=== PATIENT | female | born 1960 | race Two or more races ===

== ENCOUNTER 2017-05-18 13:06 | Outpatient (CLI) | payer MEDICARE, MEDICAID ==
[~2017-05-18 13:06] MED LIST: AMITRIPTYLINE25 MG ORAL; NORCO 10-325 T1 EACH ORAL; PROZAC10 MG ORAL
[2017-05-18 13:20] VITALS: BP 130/82
--- NOTE | 2017-05-18 14:05 | GI Initial Consult Note ---
History of Present Illness General Date patient seen: May 18, 2017 Time patient seen: 14:02 Referring physician: Analia Reason for Consultation: ABDOMINAL BLOATING Present Illness HPI 56 year old patient presents today c/o of constipation no BM x 3 days and abdominal bloating after meals. S/P EGD/colonoscopy (03/24/16) - 3 cm Barretts esophagus, diverticulosis, multiple polyps. Denies any unintentional weight loss or changes in dietary habits. No signs of abuse or neglect. Patient is not fall risk. Home Meds Reported Medications Hydrocodone Bit/Acetaminophen 10-325* (NORCO 10-325*) 1 Each Tablet, 1 TAB ORAL Q4H Y for For Pain, TAB 0 Refills PRN PAIN 04/27/16 Amitriptyline HCl (ELAVIL*) 25 Mg Tablet, 25 MG ORAL BEDTIME, TAB 04/27/16 Fluoxetine Hcl* (PROZAC*) 10 Mg Capsule, ORAL DAILY, CAP 04/27/16 Med list reviewed/reconciled: Yes Allergies: Coded Allergies: No Known Allergies (Unverified , 04/27/16) History Provided By: Patient PMH Narrative pancreatitis disk hernia asthma pneumonia depression PSHx - N/A Social History: Reports: other - coffee, smoking - 7-10 cigarrettes a day Home Meds Reported Medications Hydrocodone Bit/Acetaminophen 10-325* (NORCO 10-325*) 1 Each Tablet, 1 TAB ORAL Q4H Y for For Pain, TAB 0 Refills PRN PAIN 04/27/16 Amitriptyline HCl (ELAVIL*) 25 Mg Tablet, 25 MG ORAL BEDTIME, TAB 04/27/16 Fluoxetine Hcl* (PROZAC*) 10 Mg Capsule, ORAL DAILY, CAP 04/27/16 Allergies: Coded Allergies: No Known Allergies (Unverified , 04/27/16) Review of Systems All Other Systems: negative except mentioned in HPI Physical Exam T 98.3 BP 130/82 P 106 100 RA Sp02 EP Interpretation: reviewed, normal General Appearance: well appearing, no apparent distress, alert Head: normocephalic EENT: PERRL/EOMI, normal ENT inspection Neck: supple Respiratory: normal breath sounds, no respiratory distress Cardiovascular: normal rate Gastrointestinal: normal inspection, non tender, soft, normal bowel sounds, non -distended Rectal: deferred Genitourinary: no CVA tenderness Musculoskeletal: normal inspection, back normal Neurologic: normal inspection, alert, oriented x3, responsive Psychiatric: normal inspection, judgement/insight normal, memory normal Skin: normal inspection, normal color, no rash, warm/dry, palpation normal, well hydrated Lymphatic: normal inspection, no adenopathy GI: Plan Problems: (1) Small intestinal bacterial overgrowth (2) Adorno esophagus (3) Depression (4) Diverticulosis (5) Colon polyps Plan EGD scheduled at 05/26/17. - NPO @ [place] day prior procedure explained and acknowledged by patient. Rx Xifaxan will consider OIC medication if constipation has not improved. Seen with Dr. Kramer. Thank you for this patient referral. Marie Uriarte N.P. May 18, 2017 14:05
== END 2017-05-18 13:40 | disposition home or self-care (01) ==
LOC: PAN 13:06
DX: K57.90 Diverticulosis of intestine, part unspecified, without perforation or abscess without bleeding (principal); K63.5 Polyp of colon; F32.9 Major depressive disorder, single episode, unspecified; K22.70 Barrett's esophagus without dysplasia; A04.8 Other specified bacterial intestinal infections; F17.210 Nicotine dependence, cigarettes, uncomplicated
CPT/HCPCS: 99212

== ENCOUNTER 2017-05-26 08:57 | Day surgery (SDC) | payer MEDICARE, MEDICAID ==
[2017-05-26] VITALS (7 sets, daily range): BP systolic 121–143; BP diastolic 69–88
[~2017-05-26] VITALS: Ht 152.4 cm; Wt 79.4 kg
--- NOTE | 2017-05-26 10:11 | Pre-Procedure Note/Attestation ---
Pre-Procedure Note/Attestation Complete Prior to Procedure Planned Procedure: not applicable Procedure Narrative: egd Indications for Procedure Pre-Operative Diagnosis: barretts esophagus Attestation I attest that I discussed the nature of the procedure; its benefits; risks and complications; and alternatives (and the risks and benefits of such alternatives ), prior to the procedure, with the patient (or the patient's legal electronics parts sales representative). I attest that, if there was a reasonable possibility of needing a blood transfusion, the patient (or the patient's legal electronics parts sales representative) was given the [facility] standardized written summary, pursuant to the Robert Kathrin Blood Safety Act ([place] Health and Safety Code # 1645, as amended). I attest that I re-evaluated the patient just prior to the surgery and that there has been no change in the patient's H&P, except as documented below: JUDE FELDMAN May 26, 2017 10:11
--- NOTE | 2017-05-26 10:11 | Short Stay Surgery H&P ---
History of Present Illness History of Present Illness Chief Complaint see recent clinic note HPI Jena Cutler is a 57 year old female who was admitted on for Barretts Esophagus Patient History Allergies: Coded Allergies: No Known Allergies (Unverified , 04/27/16) PAST MEDICAL HISTORY: Past Surgeries: Social History: Medication History Scheduled Amitriptyline HCl (Elavil*), 25 MG ORAL BEDTIME, (Reported) Fluoxetine Hcl* (Prozac*), Unknown Dose ORAL DAILY, (Reported) Scheduled PRN Hydrocodone Bit/Acetaminophen 10-325* ([place] 10-325*), 1 TAB ORAL Q4H PRN for For Pain, (Reported) Physical Exam Vital Signs Last Vital Signs Date Time Temp Pulse Resp B/P (MAP) Pulse Ox O2 Delivery O2 Flow Rate FiO2 05/26/17 09:40 98.2 92 18 123/69 95 Room Air Plan Attestation Are the patient's medical conditions optimized for surgery? JUDE FELDMAN May 26, 2017 10:11
[2017-05-26] MEDS ORDERED: Lidocaine 1% MPF 10mg/ml 5ml ONE (10:30)
[2017-05-26] MEDS ORDERED: Propofol 200mg/20ml IV ONE (10:30)
--- NOTE | 2017-05-26 11:00 | Anethesia Preoperative Eval ---
Anesthesia Pre-op PMH/ROS General Date of Evaluation: May 26, 2017 Time of Evaluation: 10:30 Anesthesiologist: tyree ASA Score: ASA 3 Mallampati Score Class I : Soft palate, uvula, fauces, pillars visible Class II: Soft palate, uvula, fauces visible Class III: Soft palate, base of uvula visible Class IV: Only hard plate visible Mallampati Classification: Class II Surgeon: juan Diagnosis: akers's esophagus Surgical Procedure: egd Anesthesia History: none Social History: current smoker Family History: no anesthesia problems Allergies: Coded Allergies: No Known Allergies (Unverified , 04/27/16) Medications: see eMAR Past Medical History Pulmonary: Reports: asthma Gastrointestinal/Genitourinary: Reports: other - colon polyps Neurologic/Psychiatric: Reports: depression/anxiety Other: obesity Anesthesia Pre-op Phys. Exam Physician Exam Last Vital Signs Date Time Temp Pulse Resp B/P (MAP) Pulse Ox O2 Delivery O2 Flow Rate FiO2 05/26/17 09:40 98.2 92 18 123/69 95 Room Air Constitutional: NAD Neurologic: CN 2-12 intact Cardiovascular: RRR Respiratory: CTA Gastrointestinal: S/NT/ND Airway Exam Mallampati Score: Class II MO: full Neck: short, supple TMD: 2fb ROM: full Anesthesia Pre-op A/P Risk Assessment & Plan Assessment: asa3 Plan: mac Status Change Before Surgery: No Pre-Antibiotics Drug: KENNY Joe May 26, 2017 11:00
[2017-05-26] MEDS ORDERED: DiphenhydrAMINE 50mg/ml Inj IVP PRN (11:15)
[2017-05-26] MEDS ORDERED: Midazolam 2mg/2ml Inj IVP PRN (11:15)
[2017-05-26] MEDS ORDERED: fentaNYL 100 mcg/2 mL IV PRN (11:15)
[2017-05-26] MEDS ORDERED: Atropine Inj 1mg/10ml Syr IV PRN (11:15)
[2017-05-26] MEDS ORDERED: OMEPRAZOLE40 M1 ORAL (11:16)
--- NOTE | 2017-05-26 11:49 | Immediate Post-Op Evaluation ---
Immediate Post-Op Evalulation Immediate Post-Op Evalulation Procedure: egd Date of Evaluation: May 26, 2017 Time of Evaluation: 11:03 IV Fluids: 300ml 0.9ns Blood Products: none Estimated Blood Loss: negligible Blood Pressure Systolic: 151 Blood Pressure Diastolic: 81 Pulse Rate: 95 Respiratory Rate: 18 O2 Sat by Pulse Oximetry: 100 Temperature (Fahrenheit): 97.2 Pain Score (1-10): 0 Nausea: No Vomiting: No Complications none Patient Status: awake, reacts, patent Hydration Status: adequate Drug: KENNY Joe May 26, 2017 11:49
--- NOTE | 2017-05-26 11:50 | 48 Hour Post Anesthesia Eval ---
Post Anesthesia Evaluation Procedure: egd Date of Evaluation: May 26, 2017 Time of Evaluation: 11:05 Blood Pressure Systolic: 155 0: 78 Pulse Rate: 96 Respiratory Rate: 18 Temperature (Fahrenheit): 97.2 O2 Sat by Pulse Oximetry: 100 Airway: patent Nausea: No Vomiting: No Pain Intensity: 0 Hydration Status: adequate Cardiopulmonary Status: stable Mental Status/LOC: patient returned to baseline Post-Anesthesia Complications: none Follow-up care needed: N/A KENNY FAN May 26, 2017 11:50
--- NOTE | 2017-05-26 16:15 | Procedure Note ---
DATE OF PROCEDURE: 05/26/2017 PROCEDURE: Upper endoscopy with biopsy. ANESTHESIA: Per Dr. Duran. INSTRUMENT: Olympus adult flexible upper endoscope. INDICATION: Adorno esophagus. The procedure, risks, benefits, and possible consequences, including hemorrhage, aspiration, perforation and infection, and alternative treatments, were explained to the patient/legal guardian by Dr. Wellington Kramer and the patient/legal guardian understood and accepted these risks. PROCEDURE: After informed consent was obtained and the patient was adequately sedated, Olympus upper endoscope was advanced from mouth into the second portion of duodenum and retroflexion was performed in the stomach. The patient had a small hiatal hernia. The patient had a short segment of Adorno esophagus, which was biopsied. No evidence of obvious nodule was seen. SUMMARY FINDINGS: 1. Short-segment Adorno esophagus without any nodules, status post biopsy. 2. Hiatal hernia. RECOMMENDATIONS: Follow up biopsies and treat accordingly. Wellington Kramer M.D. DR: Puja JOB#: [id number] CC:
--- NOTE | 2017-05-27 11:03 | Cardiology Report ---
APPROVED REPORT EKG Measurement Heart [id number] CT 146P-3 [id number] Normal sinus rhythm Normal ECG
--- NOTE | 2017-06-21 10:00 | Endoscopy Procedure Note ---
Endoscopy Procedure Note Indication for Procedure: gerd Procedures Performed: EGD Operative Findings/Diagnosis: gastritis Specimen: yes Pt Tolerated Procedure Well: Yes Estimated Blood Loss: none Anesthesiologist: galina Anesthesia: MAC Implant(s) used?: No 50 yrs or older w/o bx or poly: Not Applicable 10yrs. F/U not recommended: Not Applicable JUDE FELDMAN Jun 21, 2017 10:00
== END 2017-05-26 12:40 | disposition home or self-care (01) ==
LOC: GAS 08:57
DX: K22.70 Barrett's esophagus without dysplasia (principal); K44.9 Diaphragmatic hernia without obstruction or gangrene; F32.9 Major depressive disorder, single episode, unspecified; F41.9 Anxiety disorder, unspecified; Z86.010 Personal history of colon polyps; F17.200 Nicotine dependence, unspecified, uncomplicated
CPT/HCPCS: 43239; 93005; J2704; 94003; 94150

== ENCOUNTER 2017-06-08 11:48 | Outpatient (CLI) | payer MEDICARE, MEDICAID ==
[~2017-06-08 11:48] MED LIST changes: +OMEPRAZOLE40 M1 ORAL
[2017-06-08 12:40] VITALS: BP 136/79
--- NOTE | 2017-06-09 09:14 | GI Progress Note ---
Assessment/Plan Problems: (1) Adorno esophagus ICD Codes: K22.70 - Adorno's esophagus without dysplasia SNOMED: 539833005 (2) Small intestinal bacterial overgrowth ICD Codes: K63.89 - Other specified diseases of intestine SNOMED: 840944398 (3) Diverticulosis ICD Codes: K57.90 - Diverticulosis of intestine, part unspecified, without perforation or abscess without bleeding SNOMED: 745152658 (4) Colon polyps ICD Codes: K63.5 - Polyp of colon SNOMED: 52910804 Status: stable Status Narrative Seen with Dr. Kramer. Assessment/Plan s/p EGD SUMMARY FINDINGS reviewed with patient: 1. Short-segment Adorno esophagus without any nodules, status post biopsy >> consistent with Adorno 2. Hiatal hernia. RECOMMENDATIONS: RTC x 2 weeks, Rx for Xifaxan still pending repeat EGD x 3 years Subjective Subjective abdominal pain abdominal bloating wheezing Objective Last 24 Hour Vital Signs Date Time Temp Pulse Resp B/P (MAP) Pulse Ox O2 Delivery O2 Flow Rate FiO2 06/08/17 12:40 98.4 98 16 136/79 95 General Appearance: WD/WN, no apparent distress, alert Cardiovascular: normal rate Respiratory/Chest: normal breath sounds, no respiratory distress Abdominal Exam: normal bowel sounds, non tender, soft Extremities: normal range of motion, non-tender Marie Uriarte N.P. Jun 09, 2017 09:13
== END 2017-06-08 12:20 | disposition home or self-care (01) ==
LOC: PAN 11:48
DX: K22.70 Barrett's esophagus without dysplasia (principal); A04.9 Bacterial intestinal infection, unspecified; K57.90 Diverticulosis of intestine, part unspecified, without perforation or abscess without bleeding; K63.5 Polyp of colon; K44.9 Diaphragmatic hernia without obstruction or gangrene
CPT/HCPCS: 99211

== ENCOUNTER → 2017-09-29 | Outpatient (CLI) | payer MEDICARE, MEDICAID ==
--- NOTE | 2017-09-29 15:54 | Diagnostic Imaging Report ---
Indication: Memory loss Technique: Continuous helical CT scanning of the head was performed without intravenous contrast material. Axial and coronal 5 mm sections were generated. Radiation dose was minimized using automated exposure control Dose: Total Dose Length Product - DLP 1362.[address] Dose Index - CTDIvol(s) 70.38 mGy. Comparison: Findings: There is mild prominence to the frontal extra-axial CSF spaces The ventricular system is normal in size and configuration. There is no shift of midline structures. No abnormal extra-axial fluid collections are noted. There is no evidence of intracerebral bleeding. No other abnormal high or low density areas are noted within the brain. There is evidence of an empty sella. Gonzalez-white differentiation is normal. Impression: Evidence of mild frontal cortical volume loss Negative for acute intracranial bleed or mass effect Empty sella incidentally noted The CT scanner at [facility] is accredited by the [employer] and the scans are performed using protocols designed to limit radiation exposure to as low as reasonably achievable to attain images of sufficient resolution adequate for diagnostic evaluation.
== END | disposition home or self-care (01) ==
LOC: CAT 15:37
DX: R41.3 Other amnesia (principal)
CPT/HCPCS: 70450